=== PATIENT | male | born 1995 | race Caucasian/White ===

== ENCOUNTER 2019-05-26 08:28 | Day surgery (SDC) | payer OTHER ==
[2019-05-26] MEDS ORDERED: CEFAZOLIN SODIUM IN 0.9 % NACL 2 GM/100 ML BAG IV ONE (08:50)
[2019-05-26] MEDS ORDERED: LACTATED RINGERS 1,000 ML IV ONE (08:54)
--- NOTE | 2019-05-26 09:02 | ANESTHESIA ---
Pre-Anesthesia VS, & Labs - Diagnosis Left 5th metatarsal symptomatic hardware - Procedure removal of left 5th metatarsal hardware Vital Signs: Temp Pulse Resp BP Pulse Ox 36.2 C L 78 18 135/82 H 97 05/26/19 08:38 05/26/19 08:38 05/26/19 08:38 05/26/19 08:38 05/26/19 08:38 Height 6 ft 2 in Weight (kg) 86.18 kg - NPO >8 hours Home Medications and Allergies No Known Home Medications 09/07/16 Allergies/Adverse Reactions: Allergies Allergy/AdvReac Type Severity Reaction Status Date / Time No Known Drug Allergies Allergy Verified 05/24/19 14:17 Anes History & Medical History - Anesthetic History Anesthesia Complications: reports: No previous complications - Medical History Cardiovascular: reports: None Pulmonary: reports: None Gastrointestinal: reports: None Urinary: reports: None Neuro: reports: None Musculoskeletal: reports: None Endocrine/Autoimmune: reports: None Blood Disorders: reports: None Skin: reports: None Smoking Status: Never smoker Psychosocial: reports: No issues indicated - Surgical History Eyes Ears Nose Throat (EENT): Tonsil/Adenoidectomy Orthopedic: Other Exam General: Alert, Oriented x3, Cooperative, No acute distress Dental: WNL Mouth Openin Fingerbreadth Neck Mobility: Normal Mallampati classification: II Thyromental Distance: greater than 6 cm Respiratory: Lungs clear, Normal breath sounds, No respiratory distress, No accessory muscle use Cardiovascular: Regular rate, Normal S1, Normal S2, No murmurs Mental/Cognitive Status: Alert/Oriented X3, Normal for patient Plan Anesthesia Type: General Consent for Procedure(s) Verified and Reviewed: Yes Code Status: Attempt Resuscitation ASA classification: 1-Healthy patient Is this case an emergency?: No
[2019-05-26] MEDS ORDERED: ONDANSETRON 4 MG/2 ML VIAL IVP ONE (09:05)
[2019-05-26] MEDS ORDERED: LIDOCAINE-MPF 2% 5 ML VIAL EP ONE (09:05)
[2019-05-26] MEDS ORDERED: KETOROLAC 30 MG/ML VIAL IVP ONE (09:05)
[2019-05-26] MEDS ORDERED: DEXAMETHASONE 4 MG/ML VIAL IVP ONE (09:05)
[2019-05-26] MEDS ORDERED: PROPOFOL 200 MG/20 ML VIAL IVP ONE (09:05)
[2019-05-26] MEDS ORDERED: fentaNYL 100 MCG/2 ML VIAL IVP ONE (09:05)
[2019-05-26] MEDS ORDERED: MIDAZOLAM 2 MG/2 ML VIAL IVP ONE (09:05)
[2019-05-26] MEDS ORDERED: BUPIVACAINE 0.25%-EPI 1:200000 PF 30 ML VIAL ONE (09:07)
[2019-05-26] MEDS ORDERED: BUPIVACAINE 0.25% PF 30 ML VIAL SUBQ ONE (09:36)
[2019-05-26] MEDS ORDERED: BUPIVACAINE 0.25%-EPI 1:200000 PF 10 ML VIAL SUBQ ONE (09:46)
[2019-05-26] MEDS ORDERED: oxyCODONE 5 MG TABLET PO PRN (10:22)
[2019-05-26] MEDS ORDERED: ONDANSETRON 4 MG/2 ML VIAL IVP PRN (10:22)
[2019-05-26 10:42] VITALS: BP 127/79
--- NOTE | 2019-05-26 10:44 | OPERATIVE REPORT ---
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 Following his recovery from the index surgery in 2015, he reported approximately 2 to 2-1/2 years of relatively pain- free activity. Approximately 6 months ago he began to develop increasing pain over the lateral foot, and noticed increasing prominence of the hardware. Radiographs demonstrated that the proximal-most screw had backed out of the plate approximately 1 cm and was protruding into the overlying soft tissue. Clinical exam revealed significant tenderness directly over the prominent screw head, this is where the patient was endorsing most of the pain. We discussed options to include continued nonoperative management, with risks including erosion/ulceration of the hardware through the skin, versus operative treatment. He is preparing to return to his [employer] year of college later this summer, so we discussed pursuing screw removal now prior to departure. We discussed this removal alone, may not fully relieve his symptoms, and that he may need further surgical procedures in the future. After extensive discussion in clinic regarding the risk benefits and limitations of surgery, as well as the persistence of pain following surgery, the patient elected to proceed with surgical removal of the prominent screw. Risks include pain, bleeding, infection, implant complications, implant breakage damage to nearby structures and cartilage, lack of symptom relief, need for further surgery, DVT, PE, stroke, and . Written consent was obtained. Tourniquet: Left thigh 250 mmHg, approximately 15 minutes Procedure in Detail: The patient was met in the pre-operative holding area on the day of the procedure. Patient identity and consent were verified, the operative extremity was signed and questions were answered. The patient was brought to the operating room and a general anesthetic was administered. Supine position was used and bony prominences were padded. A well-padded tourniquet was placed on the left thigh. Standard prepping and draping was performed. A time out confirmed patient identification, laterality, procedure, allergies, antibiotics, and images. Following the surgical timeout, an approximately 8mm incision was marked out directly over the prominent screw head on the skin utilizing the previous incision. The Esmarch bandage was used to exsanguinate the left lower extremity and the tourniquet was inflated. A 15 blade was used to incise the skin, and then tenotomy scissors were used to gently spread the soft tissue over the screw head. A small amount of clear bursal fluid was released as the screw head was approached. A [place] was further used to elevate the soft tissue from the screw. Once the screw head was exposed, the appropriate Arthrex screwdriver was seated and the screw was removed without difficulty. Mini C arm fluoroscopy was used to confirm that the screw had been removed in its entirety. The wound was then irrigated using Angiocath sheath with normal saline. The wound was then closed using a buried interrupted 3-0 Monocryl, followed by Dermabond. Once the Dermabond had dried, Steri-Strips were placed over the incision to reinforce the repair. 0.25% marcain w/ epinephrine was injected in the perincisional soft tissue. The wound was dressed with 4 x 4's, Vanesa, Webril and Naldo bandage, Anesthesia was reversed and patient was transferred to the PACU in stable condition. Post op plan: - Postoperatively he will be non-weight bearing for 3 days until the dressing is down, he can then begin weightbearing as tolerated. - Dressing down in 3 days, at which point he can shower and get incision wet but not submerge it. - Aspirin for 30 days for DVT prophylaxis - Follow-up in 1 week for incision check
== END 2019-05-26 08:29 | disposition home or self-care (01) ==
LOC: SDS 08:28
PROVIDERS: ATTEND Orthopaedic Surgery
PROC: 0QPP04Z Removal of Internal Fixation Device from Left Metatarsal, Open Approach (ICD-10-PCS; principal; 2019-05-26 09:30)
DX: T84.223A Displacement of internal fixation device of bones of foot and toes, initial encounter (principal); T84.84XA Pain due to internal orthopedic prosthetic devices, implants and grafts, initial encounter
CPT/HCPCS: 20680; J0690; J7120